=== PATIENT | male | born 1990 | race Caucasian/White ===

== ENCOUNTER 2023-08-17 06:52 | Emergency (ER) | payer MEDICAID ==
[~2023-08-17] VITALS: Ht 170.2 cm; Wt 104.3 kg
[2023-08-17 06:59] VITALS: BP_SYST 121; PULSE 118; RESP 16; TEMP 98.5; O2SAT 98
[2023-08-17 07:52] LABS: BASOPHILS % (AUTO) 0.5 % (0.0-2.0); EOSINOPHILS # (AUTO) 0.1 K/uL (0.0-0.4); HEMATOCRIT 43.9 % (36-54); HEMOGLOBIN 15.6 g/dL (14.0-18.0); LYMPHOCYTES # (AUTO) 3.1 K/uL (1.0-5.5); LYMPHOCYTES % (AUTO) 45.3 % (20.5-51.5); MEAN CORPUSCULAR HEMOGLOBIN 31 pg (27-31); MEAN CORPUSCULAR HGB CONC 36 % (32-36); MEAN CORPUSCULAR VOLUME 86 fL (79.0-98.0); MONOCYTES # (AUTO) 0.5 K/uL (0.0-1.0); MONOCYTES % (AUTO) 6.9 % (1.7-9.3); NEUTROPHILS # (AUTO) 3.1 K/uL (1.8-7.7); NEUTROPHILS % (AUTO) 45.3 % (40.0-70.0); PLATELET COUNT (AUTO) 205 K/uL (130-430); WHITE BLOOD COUNT (AUTO) 6.8 K/uL (4.8-10.8)
[2023-08-17 08:13] LABS: ANION GAP 11 (5-15); CALCIUM 8.3 mg/dL (8.4-11.0); CARBON DIOXIDE 22 mmol/L (23-29); CHLORIDE 104 mmol/L (98-107); FREE T4 (FREE THYROXINE) 1.1 ng/dl (0.8-1.5); GFR AFRICAN AMERICAN 127 mL/min (>90); GFR NON AFRICAN-AMERICAN 105 mL/min (>90); GLUCOSE 117 mg/dL (74-106); POTASSIUM 3.8 mmol/L (3.5-5.1); SODIUM SERUM 137 mmol/L (136-145); THYROID STIMULATING HORMONE 3.07 uIu/mL (0.36-3.74); UREA NITROGEN, BLOOD 17 mg/dL (8-21)
[2023-08-17] MEDS ORDERED: ALPR0.25 PO (08:20)
[2023-08-17 08:39] LABS: BARBITURATE, URINE NEGATIVE (NEG <=200); BENZODIAZEPINE, URINE NEGATIVE (NEG <=150); CANNABINOID, URINE POSITIVE (NEG <=50); COCAINE, URINE NEGATIVE (NEG <=150); METHAMPHETAMINES SCREEN,URINE NEGATIVE (NEG <=500); OPIATE, URINE NEGATIVE (NEG <=100); PHENCYCLIDINE SCREEN,URINE NEGATIVE (NEG <=25); UR TRICYCLIC ANTIDEPRESSANTS NEGATIVE (NEG <=300); URINE AMPHETAMINE NEGATIVE (NEG <=500); URINE METHADONE NEGATIVE (NEG <=200); URINE OXYCODONE SCREEN NEGATIVE (NEG <=100)
[2023-08-17 09:29] VITALS: BP_SYST 140; PULSE 78; RESP 18; TEMP 98.5; O2SAT 98
== END 2023-08-17 09:30 | disposition home or self-care (01) ==
LOC: SED 06:52
DX: R07.9 Chest pain, unspecified (principal); F41.9 Anxiety disorder, unspecified; R11.0 Nausea; F12.90 Cannabis use, unspecified, uncomplicated; Z79.899 Other long term (current) drug therapy
CPT/HCPCS: 36415; 71045; 80048; 80307; 84439; 84443; 84484; 85025; 93005; 99285